=== PATIENT | male | born 1980 | race Caucasian/White ===

== ENCOUNTER → 2019-06-27 17:52 | Outpatient (CLI) | payer OTHER, MEDICAID, SELFPAY ==
--- NOTE | 2019-06-27 17:54 | DI.MRI.S_ITS ---
PROCEDURE: MR SHOULDER RT WO CON INDICATIONS: PAIN IN RIGHT SHOULDER TECHNIQUE: Noncontrast oblique coronal T2 fast spin echo with fat saturation, oblique sagittal T1 spin echo and T2 fast spin echo with fat saturation, axial T1 spin echo and T2 fast spin echo with fat saturation through the shoulder. COMPARISON: None. FINDINGS: Image quality: Excellent. Rotator cuff: Partial-thickness low-grade bursal and articular sided tear seen at the junction of the supraspinatus and infraspinatus tendon. Teres minor appears grossly intact. Subscapularis tendon appears intact no atrophy of the rotator cuff muscles although questionable minimal fatty infiltration of the teres minor Bones and bursae: No bone marrow contusions or fractures. No acromioclavicular joint degeneration. Glenohumeral degenerative joint disease is also present, with full-thickness articular cartilage defect involving the central and inferior glenoid. Acromion demonstrates conventional anatomy, without an os acromiale. Minimal subacromial-subdeltoid bursitis. Capsule and soft tissues: Labrum: Macerated circumferential labral tear is seen, probably chronic. Long head of the biceps tendon intact. The rotator interval appears normal, without fibrosis. Coracohumeral ligament not well visualized. IMPRESSION: Partial-thickness low-grade bursal and articular sided tear at the junction of the supraspinatus and infraspinatus tendons Full-thickness glenohumeral articular cartilage defect involving the central and inferior glenoid. Poorly defined, circumferential labral tear, probably chronic. Dictated by: Prasad Osullivan M.D. on 06/28/2019 at 8:56 Approved by: Prasad Osullivan M.D. on 06/28/2019 at 9:09
== END ==
PROVIDERS: PCP Family Medicine; Referring Provider Nurse Practitioner Family; Visit Provider Nurse Practitioner Family
DX: M25.511 Pain in right shoulder (principal); M75.111 Incomplete rotator cuff tear or rupture of right shoulder, not specified as traumatic
CPT/HCPCS: 73221

== ENCOUNTER → 2021-09-21 10:40 | Outpatient (CLI) | payer OTHER, MEDICAID, SELFPAY ==
--- NOTE | 2021-09-21 11:59 | DI.CT.S_ITS ---
PROCEDURE: CT ABDOMEN PELVIS W CON INDICATIONS: Right lower quadrant pain TECHNIQUE: After the administration of intravenous contrast, axial sections acquired from the lung bases to the pubic symphysis. Coronal and sagittal reformats were performed. For radiation dose reduction, the following was used: automated exposure control, adjustment of mA and/or kV according to patient size. COMPARISON: None. FINDINGS: Lower thorax: The lung bases are clear. Heart size normal. No hiatal hernia. Liver: Normal in size and attenuation. No contour deformity present. Biliary system: No calcified cholelithiasis or pericholecystic inflammation. No intra or extrahepatic bile duct dilatation. Pancreas: Unremarkable without mass or inflammation evident. Spleen: The spleen is enlarged at 13.5. No intrinsic mass lesion. Adrenals: Normal morphology and density. Reproductive system: Unremarkable as visualized. Urinary system: Normal renal size and attenuation. No renal calculi, hydronephrosis, or solid mass present. Urinary bladder unremarkable. Gastrointestinal system: The bowel is unremarkable without evidence of bowel obstruction or inflammation. The stomach appears unremarkable. Moderate fecal debris noted in the rectum Appendix: Normal appendix identified. No evidence of appendicitis. Peritoneal spaces: No mesenteric or retroperitoneal adenopathy. No free air. No free fluid. Vasculature: The IVC, aorta and iliac vasculature are unremarkable. Abdominal wall: Abdominal wall intact without evidence of ventral or inguinal hernias. Musculoskeletal: Normal bone mineralization. No acute fractures. IMPRESSION: 1. Normal appendix. No evidence of appendicitis. 2. Moderate fecal debris in the rectum. 3. Mild splenomegaly, 13.5 cm Approved by: Juan Fisher M.D. on 09/21/2021 at 12:19
== END ==
PROVIDERS: PCP Nurse Practitioner Family; Referring Provider Nurse Practitioner Family; Visit Provider Nurse Practitioner Family
DX: R10.31 Right lower quadrant pain (principal); R16.1 Splenomegaly, not elsewhere classified; R19.8 Other specified symptoms and signs involving the digestive system and abdomen
CPT/HCPCS: 74177

== ENCOUNTER 2022-11-16 11:43 | Emergency (ER) | payer OTHER, MEDICAID, SELFPAY ==
[2022-11-16 11:43] VITALS: BP 110/69; PULSE 78; RESP 16; TEMP 36.9; O2SAT 100; BMI 28.0
[2022-11-16 11:48] VITALS: BP 110/69; PULSE 74; O2SAT 100
[2022-11-16 12:00] VITALS: BP 117/75; PULSE 74; O2SAT 99
[2022-11-16 12:06] LABS: Add Manual Diff / Slide Review NO; Basophils Absolute Auto 0 /uL (0-100); Basophils Percent Auto 0.3 % (0-2); Eosinophils Absolute Auto 0 /uL (0-450); Eosinophils Percent Auto 0.4 % (2-4); Hematocrit 40.9 % (41-53); Hemoglobin 14.3 g/dL (13.5-17.5); Lymphocytes Absolute Auto 1000 /uL (1100-4500); Lymphocytes Percent Auto 9.4 % (25-40); Mean Corpuscular HGB Conc 34.9 % (30-36); Mean Corpuscular Hemoglobin 30.7 PG (26-34); Monocytes Absolute Auto 500 /uL (0-900); Monocytes Percent Auto 4.5 % (3-14); Neutrophils Absolute Auto 8900 /uL (1500-7000); Neutrophils Percent Auto 85.4 % (50-75); Platelet Count 226 X10^3/uL (150-400); Red Blood Cell Count 4.65 X10^6/uL (4.5-5.9); Red Cell Distribution Width 12.9 % (11.6-14.8); White Blood Cell Count 10.5 X10^3/uL (4.5-11.0)
[2022-11-16 12:13] LABS: Alanine Aminotransferase 22 IU/L (<50); Albumin 3.9 g/dL (3.5-5.0); Albumin Globulin Ratio 1.3 (1.0-2.8); Alkaline Phosphatase 65 U/L (38-126); Aspartate Aminotransferase 24 IU/L (17-59); BUN Creatinine Ratio 15.4 (6-22); Bilirubin Total 0.4 mg/dL (0.2-1.3); Blood Urea Nitrogen 14 mg/dL (9-20); Calcium 8.8 mg/dL (8.4-10.2); Carbon Dioxide 27 mmol/L (22-32); Chloride 103 mmol/L (98-107); Estimated Glomerular Filt Rate > 60 mL/min (>60); Glucose 102 mg/dL (70-100); HEMOLYSIS 19 (0-50); Lipase 64 U/L (23-300); Potassium 4.2 mmol/L (3.4-5.1); Sodium 136 mmol/L (137-145); Total Protein 6.9 g/dL (6.3-8.2)
--- NOTE | 2022-11-16 12:14 | DI.CT.S_ITS ---
PROCEDURE: CT ABDOMEN PELVIS W CON INDICATIONS: RLQ pain TECHNIQUE: After the administration of intravenous contrast, axial sections acquired from the lung bases to the pubic symphysis. Coronal and sagittal reformats were performed. For radiation dose reduction, the following was used: automated exposure control, adjustment of mA and/or kV according to patient size. COMPARISON: [facility], CT, CT ABDOMEN PELVIS W CON, 09/21/2021, 11:58. FINDINGS: Image quality: Excellent. Lung bases: Unremarkable. Heart: No significant findings. ABDOMEN: Liver: Unremarkable. Gallbladder: Unremarkable. Biliary ducts: Unremarkable. Pancreas: Unremarkable. Spleen: Unremarkable. Adrenal Glands: Unremarkable. Kidneys and Ureters: Unremarkable. Stomach and Bowel: There is no bowel obstruction. No gastric or small bowel wall thickening. Appendix is noted in right retrocecal region and show normal size. No gross appendiceal wall thickening or periappendiceal fat stranding is seen. Mild fecal stasis in the colon is seen. No colonic wall thickening. Peritoneum: No abnormal intraperitoneal fluid. No free air. Ventral Wall: No hernias. Abdominal Nodes: No retroperitoneal or mesenteric adenopathy by size criteria. Vessels: Aorta and inferior vena cava are normal in size. PELVIS: Pelvic Organs: Unremarkable. Bladder: Unremarkable. Pelvic Nodes: No enlarged lymph nodes. Miscellaneous: No hernias are seen. Bones: No suspicious bony lesions. No acute vertebral body compression fracture. IMPRESSION: 1. Normal appearing appendix. No bowel obstruction or abnormal bowel wall thickening. No abscess collection. No free fluid or free air. 2. No renal stones or hydronephrosis. Dictated by: Josué Balderas M.D. on 11/16/2022 at 12:42 Approved by: Josué Balderas M.D. on 11/16/2022 at 12:45
--- NOTE | 2022-11-16 12:15 | ED_ITS ---
HPI - Abdominal Pain <Fer Norton PA-C - Last Filed: 11/16/22 13:07> General Chief Complaint: Abdominal Pain Stated Complaint: Abd Pain Time Seen by Provider: 11/16/22 11:46 Source: patient and EMS Mode of arrival: EMS History of Present Illness HPI narrative: 42-year-old male with no reported past medical history presents to the ED with 1 day of right lower quadrant pain. Patient states the pain started spontaneously this morning, lasted for about an hour and a half, was about a 7 or 8/10. Patient also had some associated nausea and clamminess. Patient states that the pain resolved spontaneously thereafter. Patient denies fever, chest pain, shortness of breath, vomiting, diarrhea, constipation, hematochezia, melena, dysuria, urinary frequency, urinary urgency, lightheadedness, dizziness, syncope. Patient's last bowel movement was this morning, which he states was normal. No abdominal surgeries. Patient was seen at [facility], given [facility] and flown here. Related Data Home Medications Medication Instructions Recorded Confirmed [TUMERIC] Q DAY ##0 07/19/16 zinc gluconate 50 mg tablet 50 mg PO ##0 07/19/16 Previous Rx's Medication Instructions Recorded diph,pertuss(acel),tet vac(PF) 0.5 ml IM STAT ##1 07/19/16 2Lf-(2.5-5-3-5mcg)-5 Lf/0.5 mL IM susp (Adacel (Tdap Adolesn/Adult)(PF)) Allergies Allergy/AdvReac Type Severity Reaction Status Date / Time acetaminophen [From TYLENOL] Allergy Intermediate hives Unverified 08/10/17 13:07 Penicillins [PENICILLINS] Allergy Intermediate auto Unverified 08/10/17 13:07 immune , skeletal/muscular gluten [GLUTEN] AdvReac Unknown tied into Unverified 08/10/17 13:07 blood type, auto immune response abdominal issues Review of Systems <Fer Norton PA-C - Last Filed: 11/16/22 13:07> Review of Systems ROS Unobtainable: All systems reviewed & are unremarkable except as noted in HPI and below Constitutional Constitutional: Reports chills, Denies fatigue, Denies fever(s), Denies frequent falls, Denies lethargy and Denies weakness Eyes Eyes: Denies change in vision, Denies eye discharge, Denies irritation and Denies loss of vision ENT Ears, Nose, Mouth, and Throat: Denies change in voice, Denies dizziness, Denies neck pain, Denies sore throat and Denies throat swelling Cardiovascular Cardiovascular: Denies chest pain, Denies irregular heart rhythm, Denies lightheadedness, Denies palpitations, Denies dyspnea, Denies dyspnea on exertion and Denies orthopnea Respiratory Respiratory: Denies cough, Denies dyspnea, Denies dyspnea on exertion and Denies wheezing Gastrointestinal Gastrointestinal: Reports abdominal pain, Denies change in bowel habits, Denies diarrhea, Reports nausea and Denies vomiting Genitourinary Genitourinary: Denies hematuria, Denies flank pain, Denies urinary incontinence and Denies urinary urgency Musculoskeletal Musculoskeletal: Denies back pain, Denies muscle weakness, Denies neck pain, Denies numbness and Denies tingling Integumentary/Breasts Skin/Breast: Denies pruritus, Denies erythema, Denies rash and Denies wounds Neurologic Neurologic: Denies behavioral changes, Denies confusion, Denies dizziness, Denies frequent falls, Denies loss of vision, Denies numbness, Denies tingling and Denies weakness Psychiatric Psychiatric: Denies anxiety, Denies behavioral changes, Denies confusion, Denies depression, Denies homicidal ideation and Denies suicidal ideation Endocrine Endocrine: Denies fatigue, Denies flushing and Denies palpitations Hematologic/Lymphatic Hematologic/Lymphatic: Denies easy bruising Allergic/Immunologic Allergic/Immunologic: Denies urticaria, Denies throat swelling and Denies wheezing Patient History <Fer Norton PA-C - Last Filed: 11/16/22 13:07> Family History Father Age: 71 Overweight Mental health problem Grandfather Age: 89 Cancer Heart disease Mother Age: 68 Overweight Mental health problem Sister Age: 39 Overweight Mental health problem Kidney stones Sister Age: 35 Overweight Social History Smoking Status: Never smoker Smoking Status: Never smoker Substance Use Type: does not use Exam <Fer Norton PA-C - Last Filed: 11/16/22 13:07> Narrative Exam Narrative: Const General:?cooperative, healthy appearing and comfortable [facility] Head:?normal to inspection Ears:?hearing grossly normal bilaterally Nose:?external nose normal Face and sinus:?normal facial exam and sinuses nontender Mouth:?oral mucosae normal Throat:?posterior oropharynx normal Eyes General:?appearance normal, both eyes and all related structures Neck Neck:?normal visual inspection and no lymphadenopathy noted Resp Effort & Inspection:?normal respiratory effort Auscultation:?clear to auscultation bilaterally Cardio Rate:?regular rate Rhythm:?regular rhythm GI Abdomen is soft, non distended, nontender to palpation. There is no CVA tenderness. Neuro General:?patient alert, patient awake and patient oriented x3 Initial Vital Signs Initial Vital Signs: Vital Signs Temperature 98.5 F 11/16/22 11:43 Pulse Rate 78 11/16/22 11:43 Respiratory Rate 16 11/16/22 11:43 Blood Pressure 110/69 11/16/22 11:43 Pulse Oximetry 100 11/16/22 11:43 Oxygen Delivery Method Room Air 11/16/22 11:43 <Jaleesa Mendez DO - Last Filed: 11/19/22 06:56> Initial Vital Signs Initial Vital Signs: Vital Signs Temperature 98.5 F 11/16/22 11:43 Pulse Rate 78 11/16/22 11:43 Respiratory Rate 16 11/16/22 11:43 Blood Pressure 110/69 11/16/22 11:43 Pulse Oximetry 100 11/16/22 11:43 Oxygen Delivery Method Room Air 11/16/22 11:43 Course <Fer Norton PA-C - Last Filed: 11/16/22 13:07> Orders Ordered: Discontinued Medications Ondansetron HCl (Ondansetron 4 Mg Odt) 4 mg PO NOW PRN PRN Reason: Nausea And Vomiting Ondansetron HCl (Ondansetron 4 Mg/2 Ml Inj) 4 mg IV NOW PRN PRN Reason: Nausea And Vomiting Vital Signs Vital signs: Vital Signs - 8 hr 11/16/22 11:43 Temperature 98.5 F Pulse Rate 78 Respiratory Rate 16 Blood Pressure 110/69 Pulse Oximetry 100 Oxygen Delivery Method Room Air <DO El Armstrong Last Filed: 11/19/22 06:56> Orders Ordered: Discontinued Medications Ondansetron HCl (Ondansetron 4 Mg Odt) 4 mg PO NOW PRN PRN Reason: Nausea And Vomiting Ondansetron HCl (Ondansetron 4 Mg/2 Ml Inj) 4 mg IV NOW PRN PRN Reason: Nausea And Vomiting Vital Signs Vital signs: Vital Signs - 8 hr 11/16/22 11:43 Temperature 98.5 F Pulse Rate 78 Respiratory Rate 16 Blood Pressure 110/69 Pulse Oximetry 100 Oxygen Delivery Method Room Air MDM - Abdominal Pain <Hyma JOSE G Norton - Last Filed: 11/16/22 13:07> Lab Data 11/16/22 11:52 11/16/22 11:52 Labs: Lab Results 11/16/22 11/16/22 Range/Units 11:52 11:52 WBC 10.5 (4.5-11.0) X10^3/uL RBC 4.65 (4.5-5.9) X10^6/uL Hgb 14.3 (13.5-17.5) g/dL Hct 40.9 L (41-53) % MCV 88.0 (80-100) fL MCH 30.7 (26-34) PG MCHC 34.9 (30-36) % RDW 12.9 (11.6-14.8) % Plt Count 226 (150-400) X10^3/uL Neut % (Auto) 85.4 H (50-75) % Lymph % (Auto) 9.4 L (25-40) % Stanton % (Auto) 4.5 (3-14) % Eos % (Auto) 0.4 L (2-4) % Baso % (Auto) 0.3 (0-2) % Neut # (Auto) 8900 H (2267-5093) /uL Lymph # (Auto) 1000 L (2939-2507) /uL Stanton # (Auto) 500 (0-900) /uL Eos # (Auto) 0 (0-450) /uL Baso # (Auto) 0 (0-100) /uL Sodium 136 L (137-145) mmol/L Potassium 4.2 (3.4-5.1) mmol/L Chloride 103 (98-107) mmol/L Carbon Dioxide 27 (22-32) mmol/L BUN 14 (9-20) mg/dL Creatinine 0.91 (0.66-1.25) mg/dL Estimated GFR > 60 (>60) mL/min BUN/Creatinine Ratio 15.4 (6-22) Glucose 102 H (70-100) mg/dL Calcium 8.8 (8.4-10.2) mg/dL Total Bilirubin 0.4 (0.2-1.3) mg/dL AST 24 (17-59) IU/L ALT 22 (<50) IU/L Alkaline Phosphatase 65 (38-126) U/L Total Protein 6.9 (6.3-8.2) g/dL Albumin 3.9 (3.5-5.0) g/dL Globulin 3.0 (1.7-4.1) g/dL Albumin/Globulin Ratio 1.3 (1.0-2.8) Lipase 64 (23-300) U/L MDM Narrative Medical decision making narrative: 42-year-old male with no reported past medical history presents to the ED with 1 day of right lower quadrant pain. Concern for appendicitis versus nephrolithiasis versus UTI versus pyelonephritis versus other intra-abdominal pathology versus other. Will obtain labs, lipase, UA. Patient is currently not in pain, declines pain medication. Abdomen appears benign on exam, however since patient will have difficulty returning to the ED from [facility] if his symptoms were to recur, will obtain a CT abdomen pelvis. Will reassess. Patient continues to be symptom-free in the ED. labs, CT abdomen pelvis without acute findings. Discussed findings with patient, explained that it was unclear what the etiology of his symptoms were. ED return precautions were discussed. Patient agrees to return to the ED if symptoms recur, he is persistently vomiting. Medical records reviewed: Yes <Jaleesa Mendez, - Last Filed: 11/19/22 06:56> Lab Data Labs: Lab Results 11/16/22 11/16/22 Range/Units 11:52 11:52 WBC 10.5 (4.5-11.0) X10^3/uL RBC 4.65 (4.5-5.9) X10^6/uL Hgb 14.3 (13.5-17.5) g/dL Hct 40.9 L (41-53) % MCV 88.0 (80-100) fL MCH 30.7 (26-34) PG MCHC 34.9 (30-36) % RDW 12.9 (11.6-14.8) % Plt Count 226 (150-400) X10^3/uL Neut % (Auto) 85.4 H (50-75) % Lymph % (Auto) 9.4 L (25-40) % Stanton % (Auto) 4.5 (3-14) % Eos % (Auto) 0.4 L (2-4) % Baso % (Auto) 0.3 (0-2) % Neut # (Auto) 8900 H (7315-4107) /uL Lymph # (Auto) 1000 L (7770-3450) /uL Stanton # (Auto) 500 (0-900) /uL Eos # (Auto) 0 (0-450) /uL Baso # (Auto) 0 (0-100) /uL Sodium 136 L (137-145) mmol/L Potassium 4.2 (3.4-5.1) mmol/L Chloride 103 (98-107) mmol/L Carbon Dioxide 27 (22-32) mmol/L BUN 14 (9-20) mg/dL Creatinine 0.91 (0.66-1.25) mg/dL Estimated GFR > 60 (>60) mL/min BUN/Creatinine Ratio 15.4 (6-22) Glucose 102 H (70-100) mg/dL Calcium 8.8 (8.4-10.2) mg/dL Total Bilirubin 0.4 (0.2-1.3) mg/dL AST 24 (17-59) IU/L ALT 22 (<50) IU/L Alkaline Phosphatase 65 (38-126) U/L Total Protein 6.9 (6.3-8.2) g/dL Albumin 3.9 (3.5-5.0) g/dL Globulin 3.0 (1.7-4.1) g/dL Albumin/Globulin Ratio 1.3 (1.0-2.8) Lipase 64 (23-300) U/L Discharge Plan Departure Patient Disposition: Home Clinical Impression: Abdominal pain Instructions: DI for Abdominal Pain-Adult Activity Restrictions/Additional Instructions: You were evaluated in the ED today for abdominal pain. Your labs and CT abdomen pelvis were normal. It is unclear what the cause of your abdominal pain was, however it is reassuring that your workup was normal and you are no longer experiencing abdominal pain in the ED. Please return to the ED if you have worsening symptoms, persistent vomiting. Prescriptions: No Action [TUMERIC] Q DAY Qty: 0 zinc gluconate 50 MG tablet 50 mg PO Qty: 0 diph,pertuss(acel),tet vac(PF) [Adacel(Tdap Adolesn/Adult)(PF)] 0.5 ML suspension 0.5 ml IM STAT Qty: 1 0RF Referrals: Jazz Oliver ARNP [Primary Care Provider] - Stand Alone Forms: Patient Portal/API <Jaleesa Mendez DO - Last Filed: 11/19/22 06:56> Cosign ED Attending Cosignature Attestation: I was immediately available in the department for consultation. Documentation has been reviewed.
[2022-11-16 12:30] VITALS: BP 115/73; PULSE 79; O2SAT 100
[2022-11-16 13:00] VITALS: BP 115/69; PULSE 68; O2SAT 100
== END 2022-11-16 13:08 | disposition home or self-care (01) ==
PROVIDERS: Emergency Provider Student in an Organized Health Care Education/Training Program; PCP Nurse Practitioner Family
DX: R10.31 Right lower quadrant pain (principal)
CPT/HCPCS: 36415; 74177; 80053; 83690; 85025; 99283; 99284; Q9967